=== PATIENT | female | born 1960 | race Caucasian/White ===

== ENCOUNTER → 2016-10-23 | Outpatient (CLI) | payer OTHER ==
[~2016-10-23] MED LIST: ADVIL200 MG PO; ALPRAZOLAM0.5 MG PO; BACTRIM,SEPT1 TABLET PO; BENTYL10 MG PO; DILAUDID2 MG PO; LOVENOX40 MG/0.4 SC; NORCO 5/3251 TABLET PO; OMEPRAZOLE40 M1 PO; PROZAC40 MG PO; SENNA PLUS TAB1 EACH PO; XANAX0.5 MG PO; ZOFRAN ODT4 MG PO
== END | disposition home or self-care (01) ==
DX: M17.11 Unilateral primary osteoarthritis, right knee (principal); M25.561 Pain in right knee; M25.661 Stiffness of right knee, not elsewhere classified; R26.2 Difficulty in walking, not elsewhere classified; M62.89 Other specified disorders of muscle
CPT/HCPCS: 97110 GP; 97150 GO; 97161 GP; 97165 GO

== ENCOUNTER 2016-11-05 06:44 | Inpatient (IN) | payer OTHER ==
[~2016-11-05] VITALS: Ht 167.6 cm; Wt 93.9 kg
[~2016-11-05 06:44] MED LIST changes: -DILAUDID2 MG PO; -LOVENOX40 MG/0.4 SC; -SENNA PLUS TAB1 EACH PO
[2016-11-05 07:17] VITALS: BP 120/75
[2016-11-05 12:45] VITALS: BP 120/60
[2016-11-05 12:49] LABS: HEMATOCRIT 33.3 % (36.0-46.0); MCH 26.2 PG (29.0-34.0); MCHC 31.5 G/DL (30.0-36.0); MEAN PLAT.VOLUME 9.9 uM^3 (9.5-12.4); PLATELET COUNT 162 K/uL (156-360); RBC DIS.WIDTH-CV 14.3 % (11.8-14.6); RBC DIS.WIDTH-SD 42.6 % (39-53); RED BLOOD COUNT 4.01 M/uL (3.80-5.20)
[2016-11-05 12:52] LABS: WHITE BLOOD COUNT 5.1 K/uL (4.1-10.2)
[2016-11-05 15:39] VITALS: BP 142/64
[2016-11-05 19:53] VITALS: BP 125/64
[2016-11-05 23:40] VITALS: BP 138/67
[2016-11-06 03:46] VITALS: BP 113/79
[2016-11-06 05:53] LABS: HEMATOCRIT 32.1 % (36.0-46.0); MCV 82.9 FL (83-99)
[2016-11-06 06:21] LABS: ANION GAP 7 MEQ/L (2-14); CHLORIDE 102 MEQ/L (99-109); GFR ESTIMATE (CALCULATED) > 59 mL/min/; GLUCOSE 121 mg/dL (70-99); POTASSIUM 4.2 MEQ/L (3.7-5.4); SAMPLE HEMOLYSIS CHECK 0; SAMPLE ICTERIC CHECK 0; SAMPLE LIPEMIA CHECK 0; SODIUM 136 MEQ/L (136-147); UREA NITROGEN (BUN) 12 mg/dL (9-23)
[2016-11-06 12:05] VITALS: BP 134/62
[2016-11-06 15:54] VITALS: BP 133/65
[2016-11-06 19:26] VITALS: BP 135/66
[2016-11-07 00:04] VITALS: BP 127/65
[2016-11-07 03:39] VITALS: BP 130/64
[2016-11-07 05:34] LABS: HEMATOCRIT 28.2 % (36.0-46.0); MCV 82.2 FL (83-99)
[2016-11-07 05:56] LABS: ANION GAP 8 MEQ/L (2-14); CHLORIDE 98 MEQ/L (99-109); GFR ESTIMATE (CALCULATED) > 59 mL/min/; GLUCOSE 114 mg/dL (70-99); POTASSIUM 3.9 MEQ/L (3.7-5.4); SAMPLE HEMOLYSIS CHECK 0; SAMPLE ICTERIC CHECK 0; SAMPLE LIPEMIA CHECK 0; SODIUM 134 MEQ/L (136-147); UREA NITROGEN (BUN) 11 mg/dL (9-23)
[2016-11-07 08:00] VITALS: BP 126/63
[2016-11-07] MEDS ORDERED: SENNA PLUS TAB1 EACH PO (08:52)
[2016-11-07] MEDS ORDERED: LOVENOX40 MG/0.4 SC (08:54)
[2016-11-07] MEDS ORDERED: DILAUDID2 MG PO (08:54)
[2016-11-07 12:31] VITALS: BP 122/67
[2016-11-07 15:13] VITALS: BP 111/69
== END 2016-11-07 15:51 | DRG 470 ==
LOC: 2SOUTH 06:44 → 3WEST 12:37 → 2SOUTH 14:02 → 3WEST 11-07 15:51
PROVIDERS: Orthopaedic Surgery; Physician Assistant
PROC: 0SRC0J9 Replacement of Right Knee Joint with Synthetic Substitute, Cemented, Open Approach (ICD-10-PCS; principal; 2016-11-05)
DX: M17.11 Unilateral primary osteoarthritis, right knee (principal); F32.9 Major depressive disorder, single episode, unspecified; K21.9 Gastro-esophageal reflux disease without esophagitis; G47.00 Insomnia, unspecified; D62 Acute posthemorrhagic anemia; D63.8 Anemia in other chronic diseases classified elsewhere
CPT/HCPCS: 73560; 80048; 85014; 85018; 85027; J0690; J1170; J1650; J2250; J2405; J3010; J7050

== ENCOUNTER → 2017-03-26 | Outpatient (CLI) | payer BC, OTHER ==
[~2017-03-26] VITALS: Ht 167.6 cm; Wt 93.0 kg
[~2017-03-26] MED LIST changes: +DILAUDID2 MG PO; +LOVENOX40 MG/0.4 SC; +MIRALAX17 GM PO; +SENNA PLUS TAB1 EACH PO
== END | disposition home or self-care (01) ==
LOC: AMB 03-25 12:00
PROC: 3E0G8GC Introduction of Other Therapeutic Substance into Upper GI, Via Natural or Artificial Opening Endoscopic (ICD-10-PCS; principal; 2017-03-26)
DX: K22.0 Achalasia of cardia (principal)
CPT/HCPCS: J0585; J2250; J2405; J3010

== ENCOUNTER 2017-10-08 12:15 | Observation (INO) | payer OTHER ==
[~2017-10-08] VITALS: Ht 167.6 cm; Wt 94.8 kg
[2017-10-08 12:54] VITALS: BP 133/75
[2017-10-08 18:15] LABS: HEMATOCRIT 31.2 % (36.0-46.0); MCH 26.7 PG (29.0-34.0); MCHC 32.1 G/DL (30.0-36.0); MCV 83.4 FL (83-99); MEAN PLAT.VOLUME 9.5 uM^3 (9.5-12.4); PLATELET COUNT 161 K/uL (156-360); RBC DIS.WIDTH-CV 14.1 % (11.8-14.6); RED BLOOD COUNT 3.74 M/uL (3.80-5.20); WHITE BLOOD COUNT 4.8 K/uL (4.1-10.2)
[2017-10-08 21:00] VITALS: BP 137/68
[2017-10-08 21:05] VITALS: BP 137/68
[2017-10-08 23:58] VITALS: BP 101/64
[2017-10-09 04:38] VITALS: BP 105/56
[2017-10-09 06:52] LABS: ANION GAP 6 MEQ/L (2-14); CHLORIDE 106 MEQ/L (99-109); GFR ESTIMATE (CALCULATED) > 59 mL/min/; GLUCOSE 123 mg/dL (70-99); POTASSIUM 3.9 MEQ/L (3.7-5.4); SAMPLE HEMOLYSIS CHECK 0; SAMPLE ICTERIC CHECK 0; SAMPLE LIPEMIA CHECK 0; SODIUM 140 MEQ/L (136-147); UREA NITROGEN (BUN) 13 mg/dL (9-23)
[2017-10-09 07:06] LABS: HEMATOCRIT 29.3 % (36.0-46.0); MCV 83.7 FL (83-99)
[2017-10-09 07:21] VITALS: BP 121/72
[2017-10-09] MEDS ORDERED: DOCUSATE SODIU100 MG PO (09:14)
[2017-10-09] MEDS ORDERED: OXYCODONE-ACET1 EACH PO (09:16)
[2017-10-09] MEDS ORDERED: LOVENOX40 MG/0.4 SC (09:24)
== END 2017-10-09 14:45 | disposition home or self-care (01) ==
LOC: SDC 12:15 → ENRESERV 17:17 → 2SOUTH 17:27 → 3EAST 17:27 → ENRESERV 19:31 → 3EAST 20:46
PROVIDERS: Orthopaedic Surgery
PROC: 0MNN0ZZ Release Right Knee Bursa and Ligament, Open Approach (ICD-10-PCS; principal; 2017-10-08)
DX: T84.89XA Other specified complication of internal orthopedic prosthetic devices, implants and grafts, initial encounter (principal); T84.84XA Pain due to internal orthopedic prosthetic devices, implants and grafts, initial encounter; Z96.651 Presence of right artificial knee joint; M19.90 Unspecified osteoarthritis, unspecified site; F32.9 Major depressive disorder, single episode, unspecified; K21.9 Gastro-esophageal reflux disease without esophagitis; G47.00 Insomnia, unspecified; Z90.710 Acquired absence of both cervix and uterus; Z88.5 Allergy status to narcotic agent; Z87.891 Personal history of nicotine dependence; Y83.1 Surgical operation with implant of artificial internal device as the cause of abnormal reaction of the patient, or of later complication, without mention of misadventure at the time of the procedure
CPT/HCPCS: 73560; 80048; 85014; 85018; 85027; G0378; G8978 GP CI; G8979 GP CH; G8987 GO CI; G8988 GO CH; J0690; J1170; J1650; J2250; J3010